=== PATIENT | female | born 1935 | race Caucasian/White ===

== ENCOUNTER 2019-09-08 10:46 | Emergency (ER) | payer MEDICARE, OTHER ==
[~2019-09-08] VITALS: Ht 154.9 cm; Wt 50.0 kg
--- NOTE | 2019-09-08 11:05 | NUR ---
PT TO ROOM 14 PER ARABELLA. PT IS AN 84 YO FEMALE WHO APPEARS STATED AGE. PT HAS DEMENTIA AND ORIENTATION COMES AND GOES DURING CONVERSATION, HOWEVER PATIENT IS AWARE SHE IS GETTING CONFUSED. PER ARABELLA, PT HERE DUE TO INABILITY TO WALK WITH WALKER TODAY, C/O GENERALIZED WEAKNESS OF LOWER EXTREMITIES. PT DOES HAVE HX OF BLOODY NOSE, AND ARRIVES WITH COTTON BALL IN RIGHT NARIS. PT HAS PAIN IN BLE. MD IN TO ASSESS PATIENT.
[2019-09-08] MEDS ORDERED: GABA300S PO (11:12)
[2019-09-08] MEDS ORDERED: LOSA1TAB25 PO (11:12)
--- NOTE | 2019-09-08 11:27 | NUR ---
SON AT BEDSIDE, HAS NO ADDITIONAL INFORMATION TO ADD. PT UP TO [facility], MINIMAL ASSIST NEEDED BUT HAD 2 HELPERS TO AID IN GETTING HER UP. WILL CONTINUE TO MONITOR. EKG DONE.
[2019-09-08 11:38] LABS: MICROSCOPIC AUTO
[2019-09-08 11:43] LABS: CULTURE INDICATED? YES
--- NOTE | 2019-09-08 11:46 | NUR ---
IV STARTED AND BLOOD OBTAINED AND SENT FOR TESTING. DR. MARIE IN TO ASSESS PATIENT. PT REMAINS CONFUSED AT TIMES, AND IS REALLY UNSURE OF HOW OR WHY SHE GOT HERE, BUT SHE DOES NEED A REFILL OF HER NEUROTIN AND WILL NOT BE SEEING HER MD UNTIL NEXT WEDNESDAY.
[2019-09-08 11:49] LABS: BASOPHILS # (AUTO) 0.06 x10^3/uL (0-0.1); BASOPHILS % (AUTO) 1 % (0-1); EOSINOPHILS # (AUTO) 0.16 x10^3/uL (0-0.4); EOSINOPHILS % (AUTO) 2 % (1-7); LYMPHOCYTES # (AUTO) 2.15 x10^3/uL (1-3.4); LYMPHOCYTES % (AUTO) 24 % (22-44); MD NO; MEAN CORPUSCULAR HEMOGLOBIN 32.5 pg (27.0-34.8); MEAN CORPUSCULAR HGB CONC 33.2 g/dL (32.4-35.8); MEAN CORPUSCULAR VOLUME 98.1 fL (80-100); MEAN PLATELET VOLUME 8.2 fL (7.4-10.4); MONOCYTES # (AUTO) 0.97 x10^3/uL (0.2-0.8); MONOCYTES % (AUTO) 11 % (2-9); NEUTROPHILS # (AUTO) 5.72 x10^3/uL (1.8-6.8); NEUTROPHILS % (AUTO) 63 % (42-75); PLATELET COUNT 266 x10^3/uL (130-400); RED BLOOD COUNT 4.08 x10^6/uL (3.82-5.3); RED CELL DISTRIBUTION WIDTH 13.9 % (9.6-15.2)
[2019-09-08 11:57] LABS: ALANINE AMINOTRANSFERASE 36 U/L (12-78); ALBUMIN 3.2 g/dL (3.4-5.0); ANION GAP 8 mmol/L (5-15); CALCIUM 9.5 mg/dL (8.5-10.1); CHLORIDE 109 mmol/L (98-107)
[2019-09-08 12:00] LABS: ALKALINE PHOSPHATASE 125 U/L (45-117); BILIRUBIN,TOTAL 0.3 mg/dL (0.2-1.0); CREATININE 1.08 mg/dL (0.55-1.02); TOTAL PROTEIN 7.5 g/dL (6.4-8.2); TROPONIN I < 0.015 ng/mL (0.000-0.045)
[2019-09-08 13:08] VITALS: BP 149/78
== END 2019-09-08 13:15 | disposition home or self-care (01) ==
LOC: ED 12:03
DX: N30.00 Acute cystitis without hematuria (principal); I10 Essential (primary) hypertension
CPT/HCPCS: 36415; 71045; 80053; 81001; 83880; 84484; 85025; 87086; 93005; 99285